=== PATIENT | female | born 1950 | race Caucasian/White ===

== ENCOUNTER 2017-03-16 09:57 | Outpatient (CLI) | payer OTHER ==
--- NOTE | 2017-03-16 10:32 | DIAGNOSTIC IMAGING REPORT ---
PROCEDURE: DEXA BONE DENSITY STUDY CLINICAL INDICATION: SCREENING FOR OSTEOPOROSIS COMPARISON: None. FINDINGS: LUMBAR SPINE: Bone mineral density 0.938 g/cm2, T score -1 normal LEFT HIP: Bone mineral density 0.828 g/cm2, T score -0.9 normal LEFT FEMORAL NECK: Bone mineral density 0.656 g/cm2, T score -1.7 osteopenia FRACTURE RISK CALCULATION ( when applicable): 10-year fracture risk of a major osteoporotic fracture 18% and of a hip fracture 1.5% (T score greater or equal to -1.0 to: NORMAL) (T score from -1.1 to -2.4: OSTEOPENIA) (T score ess than or equal to -2.5: OSTEOPOROSIS) IMPRESSION: 1. Femoral neck osteopenia with a 10-year fracture risk of 18% and a hip fracture risk of 1.5%
--- NOTE | 2017-03-16 13:07 | DIAGNOSTIC IMAGING REPORT ---
PROCEDURE: MG UNILAT SCREEN-RIGHT W/CAD INDICATION: SCREENING. Left mastectomy. Paternal grandmother with a history of breast cancer pill TECHNIQUE: CC and MLO digital views. COMPARISON: Right mammogram 01/07/2016, 05/11/2014 and 03/27/2011. FINDINGS: Computer-aided detection applied. Mildly dense pattern with a few scattered dystrophic and vascular calcifications. No significant interval change. IMPRESSION: 1. Negative right mammogram. RESULT CODE: 1- Negative. A. A negative report should not delay biopsy if a dominant or clinically suspicious mass is present. 10-15% of cancers are not identified by x-ray. B. A negative report may reinforce clinical impression. C. Adenosis and dense breasts may obscure an underlying neoplasm. D. False positive reports average 6-10%. E.. A yearly screening mammogram is recommended. A reminder letter will be scheduled.
== END 2017-03-16 23:00 ==
LOC: XR SRH 09:57 → MAM SRH 11:00 → XR SRH 23:00
DX: M85.88 Other specified disorders of bone density and structure, other site (principal); Z12.31 Encounter for screening mammogram for malignant neoplasm of breast; Z90.12 Acquired absence of left breast and nipple